=== PATIENT | female | born 1940 | race Caucasian/White ===

== ENCOUNTER 2018-06-27 09:43 | Outpatient (CLI) | payer MEDICARE | END 2018-06-27 09:44 | disposition home or self-care (01) | LOC: RAD 09:44 | DX: R25.2 Cramp and spasm (principal) ==

== ENCOUNTER 2018-08-15 08:02 | Outpatient (CLI) | payer MEDICARE | END 2018-08-15 08:03 | disposition home or self-care (01) | LOC: RAD 08:02 | DX: Z12.31 Encounter for screening mammogram for malignant neoplasm of breast (principal) ==